=== PATIENT | male | born 1960 | race Caucasian/White ===

== ENCOUNTER 2017-06-15 09:03 | Day surgery (SDC) | payer OTHER ==
[~2017-06-15 09:03] MED LIST: LIDOCAINE 2% (SDV) 5 ML INJ
[2017-06-15] MEDS ORDERED: BUPIVACAINE 0.5% (SDV) 30 ML INJ (10:46)
[2017-06-15] MEDS ORDERED: POVIDONE IODINE 10% 28.4 GM OINT (10:46)
[2017-06-15] MEDS ORDERED: DEXAMETHASONE 4 MG/ML 1 ML INJ (10:46)
[2017-06-15] MEDS ORDERED: LIDOCAINE 1% (MPF) 30 ML INJ (10:46)
[2017-06-15] MEDS ORDERED: PROPOFOL 20 ML (10:55)
[2017-06-15] MEDS ORDERED: CEFAZOLIN 1 GM INJ (10:55)
[2017-06-15] MEDS ORDERED: KETOROLAC 30 MG INJ (10:56)
[2017-06-15] MEDS ORDERED: ONDANSETRON 4 MG INJ (10:56)
[2017-06-15] MEDS ORDERED: FENTAnyl 50 MCG/ML VIAL (10:56)
[2017-06-15] MEDS ORDERED: FENTAnyl 50 MCG/ML VIAL IV (11:00)
[2017-06-15] MEDS ORDERED: ONDANSETRON 4 MG INJ IV (11:00)
[2017-06-15] MEDS: BUPIVACAINE 0.5% (SDV) 30 ML INJ INJ (11:25)
[2017-06-15] MEDS ORDERED: NALOXONE (0.4 MG/ML) INJ (11:28)
[2017-06-15] MEDS: HYDROmorphONE (0.2 MG/ML) 10ML SYG IV (11:56)
== END 2017-06-15 12:43 | disposition home or self-care (01) ==
LOC: SDS 09:03
DX: M20.41 Other hammer toe(s) (acquired), right foot (principal); E78.5 Hyperlipidemia, unspecified
CPT/HCPCS: 28285; 88304; 88311

== ENCOUNTER 2018-06-25 09:59 | Day surgery (SDC) | payer OTHER ==
[2018-06-25] MEDS ORDERED: PROPOFOL 20 ML (11:19)
[2018-06-25] MEDS ORDERED: MIDAZOLAM 1 MG/ML 2 ML INJ IV (11:30)
[2018-06-25] MEDS ORDERED: METOCLOPRAMIDE 10 MG INJ IV (11:30)
[2018-06-25] MEDS ORDERED: ONDANSETRON 4 MG INJ IV (11:30)
[2018-06-25] MEDS ORDERED: DIPHENHYDRAMINE 50 MG INJ IV (11:30)
[2018-06-25] MEDS ORDERED: FENTAnyl 50 MCG/ML VIAL IV ×3 (11:30)
[2018-06-25] MEDS ORDERED: MEPERIDINE 25 MG INJ IV (11:30)
[2018-06-25] MEDS ORDERED: OXYCODONE/ACETAMINOPHEN (5/325) TAB PO ×2 (11:30)
[2018-06-25] MEDS ORDERED: EPHEDrine SULFATE 50 MG/5 ML SYG IV (11:30)
[2018-06-25] MEDS ORDERED: LABETALOL HCL 20MG INJ IV (11:30)
[2018-06-25] MEDS ORDERED: hydrALAzine 20 MG INJ IV (11:30)
== END 2018-06-25 12:18 | disposition home or self-care (01) ==
LOC: GIL 09:59
DX: Z12.11 Encounter for screening for malignant neoplasm of colon (principal); K64.8 Other hemorrhoids
CPT/HCPCS: 45378